=== PATIENT | male | born 1985 | race Caucasian/White ===

== ENCOUNTER 2016-10-31 17:35 | Emergency (ER) | payer SELFPAY ==
[~2016-10-31] VITALS: Ht 190.5 cm; Wt 125.0 kg
[~2016-10-31 17:35] MED LIST: /MOXI40TA OR; FOLI1TAB OR; MULTIVIT PO; PERC5TAB8 OR; ROBITUSSIN PO; THIA100T OR; no
[2016-10-31] MEDS ORDERED: FLUORESCEIN OPHTH 1 MG STRIP OU ONE (20:00)
[2016-10-31] MEDS ORDERED: TETRACAINE 0.5% OPHTH SOLN 4ML OU ONE (20:00)
[2016-10-31] MEDS ORDERED: ERYTHROMYCIN OPHTH OINT OU ONE (20:15)
[2016-10-31] MEDS ORDERED: PATA0.2S OS (20:24)
[2016-10-31] MEDS ORDERED: ERYTOIN8 OU (20:24)
[2016-10-31 20:35] VITALS: BP 141/73
== END 2016-10-31 20:38 | disposition home or self-care (01) ==
LOC: M ED 17:35
DX: H10.33 Unspecified acute conjunctivitis, bilateral (principal)

== ENCOUNTER → 2020-12-20 | Outpatient (CLI) | payer SELFPAY ==
[~2020-12-20] MED LIST changes: -/MOXI40TA OR; +AVEL1TAB2 OR; +ERYTOIN8 OU; +OLOP2.5D3 OS
== END ==
LOC: M OUTALCOH 09:52
PROVIDERS: ATTEND Psychiatry & Neurology Psychiatry
DX: F10.10 Alcohol abuse, uncomplicated (principal)

== ENCOUNTER 2020-12-31 15:55 | Outpatient (RCR) | payer SELFPAY | END 2021-01-02 | LOC: M OUTALCOH 15:55 | PROVIDERS: ATTEND Psychiatry & Neurology Psychiatry | DX: F10.10 Alcohol abuse, uncomplicated (principal); Z72.0 Tobacco use ==

== ENCOUNTER 2021-01-20 09:00 | Outpatient (RCR) | payer SELFPAY | END 2021-02-01 | LOC: M OUTALCOH 09:00 | PROVIDERS: ATTEND Psychiatry & Neurology Psychiatry | DX: F10.10 Alcohol abuse, uncomplicated (principal); Z72.0 Tobacco use ==

== ENCOUNTER 2021-02-10 08:00 | Outpatient (RCR) | payer SELFPAY | END 2021-03-04 | LOC: M OUTALCOH 08:00 | PROVIDERS: ATTEND Psychiatry & Neurology Psychiatry | DX: F10.10 Alcohol abuse, uncomplicated (principal); Z72.0 Tobacco use ==

== ENCOUNTER 2021-04-01 14:00 | Outpatient (RCR) | payer SELFPAY | END 2021-04-04 | LOC: M OUTALCOH 14:00 | PROVIDERS: ATTEND Psychiatry & Neurology Psychiatry | DX: F10.10 Alcohol abuse, uncomplicated (principal); Z72.0 Tobacco use ==

== ENCOUNTER 2021-04-29 13:52 | Outpatient (RCR) | payer SELFPAY | END 2021-05-02 | LOC: M OUTALCOH 13:52 | PROVIDERS: ATTEND Psychiatry & Neurology Psychiatry | DX: F10.10 Alcohol abuse, uncomplicated (principal); Z72.0 Tobacco use ==

== ENCOUNTER → 2021-06-02 | Outpatient (RCR) | payer SELFPAY | LOC: M OUTALCOH 05-05 08:51 | PROVIDERS: ATTEND Psychiatry & Neurology Psychiatry | DX: F10.10 Alcohol abuse, uncomplicated (principal); Z72.0 Tobacco use ==

== ENCOUNTER 2021-07-01 08:40 | Outpatient (RCR) | payer SELFPAY | END 2021-07-02 | LOC: M OUTALCOH 08:40 | PROVIDERS: ATTEND Psychiatry & Neurology Psychiatry | DX: F10.10 Alcohol abuse, uncomplicated (principal); Z72.0 Tobacco use ==

== ENCOUNTER 2021-07-06 12:47 | Outpatient (RCR) | payer SELFPAY | END 2021-08-02 | LOC: M OUTALCOH 12:47 | PROVIDERS: ATTEND Psychiatry & Neurology Psychiatry | DX: F10.10 Alcohol abuse, uncomplicated (principal); Z72.0 Tobacco use; F11.20 Opioid dependence, uncomplicated ==

== ENCOUNTER 2021-07-29 08:40 | Outpatient (RCR) | payer SELFPAY | END 2021-08-02 | LOC: M OUTALCOH 08:40 | PROVIDERS: ATTEND Psychiatry & Neurology Psychiatry | DX: F10.10 Alcohol abuse, uncomplicated (principal); Z72.0 Tobacco use; F11.20 Opioid dependence, uncomplicated ==

== ENCOUNTER → 2021-09-01 | Outpatient (RCR) | payer SELFPAY | LOC: M OUTALCOH 08-03 14:54 | PROVIDERS: ATTEND Psychiatry & Neurology Psychiatry | DX: F10.10 Alcohol abuse, uncomplicated (principal); Z72.0 Tobacco use; F11.20 Opioid dependence, uncomplicated ==

== ENCOUNTER 2021-09-26 14:00 | Outpatient (RCR) | payer SELFPAY | END 2021-10-02 | LOC: M OUTALCOH 14:00 | PROVIDERS: ATTEND Psychiatry & Neurology Psychiatry | DX: F10.10 Alcohol abuse, uncomplicated (principal); F11.20 Opioid dependence, uncomplicated; Z72.0 Tobacco use ==

== ENCOUNTER 2021-10-03 07:58 | Emergency (ER) | payer SELFPAY ==
[~2021-10-03] VITALS: Ht 188 cm; Wt 128.2 kg
[2021-10-03] MEDS ORDERED: CHARCOAL ACTIVATED LIQUID 25 GM/120 ML BTL PO ONE (08:15)
[2021-10-03] MEDS ORDERED: NS 1,000 ML IV SCH (08:15)
[2021-10-03 08:34] LABS: HEMATOCRIT 41.5 % (42.0-52.0); HEMOGLOBIN 13.8 g/dl (13.5-17.5); MEAN CORPUSCULAR HEMOGLOBIN 28.9 pg (27.0-33.0); MEAN CORPUSCULAR HGB CONC 33.3 g/dl (32.0-36.5); MEAN CORPUSCULAR VOLUME 86.8 fl (80.0-96.0); PLATELET COUNT, AUTOMATED 183 10^3/uL (150-450); RED BLOOD COUNT 4.78 10^6/uL (4.30-6.10); WHITE BLOOD COUNT 10.2 10^3/uL (4.0-10.0)
[2021-10-03] MEDS ORDERED: MULTIVITAMINS/MINERALS THERAP 1 TAB PO SCH (09:00)
[2021-10-03] MEDS ORDERED: THIAMINE 100 MG TAB PO SCH (09:00)
[2021-10-03] MEDS ORDERED: FOLIC ACID 1 MG TAB PO SCH (09:00)
[2021-10-03 09:10] LABS: ACETAMINOPHEN LEVEL < 2.0 UG/ML (10.0-30.0); ALBUMIN 3.9 GM/DL (3.2-5.2); ALT/SGPT 30 U/L (12-78); BILIRUBIN,DIRECT 0.2 MG/DL (0.0-0.2); BILIRUBIN,TOTAL 0.4 MG/DL (0.2-1.0); BLOOD UREA NITROGEN 18 MG/DL (7-18); CALCIUM LEVEL 9.3 MG/DL (8.5-10.1); CARBON DIOXIDE LEVEL 25 MEQ/L (21-32); CHLORIDE LEVEL 109 MEQ/L (98-107); ETHYL ALCOHOL (ETHANOL) < 0.003 % (0.000-0.010); GLOMERULAR FILTRATION RATE > 60.0 (>60); GLUCOSE, FASTING 117 MG/DL (70-100); POTASSIUM SERUM 3.5 MEQ/L (3.5-5.1); SALICYLATE LEVEL < 1.7 MG/DL (5.0-30.0); SODIUM LEVEL 142 MEQ/L (136-145); TOTAL PROTEIN 6.9 GM/DL (6.4-8.2)
[2021-10-03 09:14] LABS: RSV AMPLIFICATION NEGATIVE (NEGATIVE)
[2021-10-03 12:05] LABS: AMPHETAMINES LEVEL URINE NEGATIVE (NEGATIVE); BARBITURATES URINE NEGATIVE (NEGATIVE); BENZODIAZEPINES URINE NEGATIVE (NEGATIVE); CANNABINOIDS URINE NEGATIVE (NEGATIVE); COCAINE METABOLITE URINE NEGATIVE (NEGATIVE); METHADONE URINE NEGATIVE (NEGATIVE); OPIATES URINE POSITIVE (NEGATIVE); PHENCYCLIDINE URINE NEGATIVE (NEGATIVE)
[2021-10-03 13:25] VITALS: BP 154/80
== END 2021-10-03 13:29 | disposition home or self-care (01) ==
LOC: EDBD 07:58 → M ED 07:58
DX: T40.2X1A Poisoning by other opioids, accidental (unintentional), initial encounter (principal)

== ENCOUNTER 2021-10-05 09:31 | Outpatient (RCR) | payer SELFPAY | END 2021-11-02 | LOC: M OUTALCOH 09:31 | PROVIDERS: ATTEND Psychiatry & Neurology Psychiatry | DX: F10.10 Alcohol abuse, uncomplicated (principal); Z72.0 Tobacco use; F11.20 Opioid dependence, uncomplicated ==

== ENCOUNTER 2023-09-06 08:00 | Emergency (ER) | payer OTHER, SELFPAY ==
[~2023-09-06] VITALS: Ht 190.5 cm; Wt 143.2 kg
[2023-09-06 08:21] VITALS: TEMP 96.5
[2023-09-06 08:36] LABS: BASO % 0.4 % (0.0-1.0); EOS # 0.2 10^3/uL (0.0-0.5); EOS % 2.1 % (0.0-3.0); HEMATOCRIT 42.1 % (42.0-52.0); HEMOGLOBIN 14.1 g/dl (13.5-17.5); LYMPH # 1.8 10^3/uL (1.5-5.0); LYMPH % 19.9 % (24.0-44.0); MEAN CORPUSCULAR HEMOGLOBIN 28.4 pg (27.0-33.0); MEAN CORPUSCULAR HGB CONC 33.5 g/dl (32.0-36.5); MEAN CORPUSCULAR VOLUME 84.9 fl (80.0-96.0); MONO # 0.7 10^3/uL (0.0-0.8); MONO % 7.6 % (2.0-8.0); NEUTROPHILS # 6.2 10^3/uL (1.5-8.5); NEUTROPHILS % 69.8 % (36.0-66.0); PLATELET COUNT, AUTOMATED 193 10^3/uL (150-450); RED BLOOD COUNT 4.96 10^6/uL (4.30-6.10); WHITE BLOOD COUNT 8.9 10^3/uL (4.0-10.0)
[2023-09-06] MEDS: PANTOPRAZOLE 40MG VIAL IV ONE (08:45)
[2023-09-06] MEDS: MAALOX 30 ML SUSP *UDC PO ONE (08:45)
[2023-09-06 08:53] LABS: INR 1.01
[2023-09-06 09:06] LABS: LIPASE 23 U/L (12-53)
[2023-09-06 09:08] LABS: ALBUMIN 4.1 G/DL (3.2-5.2); ALKALINE PHOSPHATASE 74 U/L (46-116); ALT/SGPT 43 U/L (7.0-40); AST/SGOT 20 U/L (<34); BILIRUBIN,DIRECT 0.2 MG/DL (<0.4); BILIRUBIN,TOTAL 0.5 MG/DL (0.3-1.2); BLOOD UREA NITROGEN 14 MG/DL (9-23); CALCIUM LEVEL 9.1 MG/DL (8.5-10.1); CARBON DIOXIDE LEVEL 26 MMOL/L (20-31); CHLORIDE LEVEL 102 MMOL/L (98-107); CK-MB VALUE MASS 4.2 NG/ML (<3.6); CPK CREATINE PHOSPHOKINASE 164 U/L (46-171); CREATININE FOR GFR 0.86 MG/DL (0.70-1.30); GLOMERULAR FILTRATION RATE > 60.0 (>60); GLUCOSE, FASTING 123 MG/DL (60-100); MB/CK RELATIVE INDEX 2.56 (< OR =4); POTASSIUM SERUM 3.4 MMOL/L (3.5-5.1); SODIUM LEVEL 136 MMOL/L (136-145); TOTAL PROTEIN 7.1 G/DL (5.7-8.2)
[2023-09-06 09:10] LABS: FREE T4 1.26 NG/DL (0.89-1.76); THYROID STIMULATING HORMONE 3.752 uIU/ML (0.55-4.78)
[2023-09-06] MEDS ORDERED: NITROGLYCERIN 0.4MG SUBL TABLET SL PRN (09:10)
[2023-09-06] MEDS ORDERED: ISOVUE-370 76% 100ML VIAL As Ordered ONE (09:18)
[2023-09-06] MEDS: POTASSIUM CHLORIDE 10MEQ SR TABLET PO ONE (09:32)
[2023-09-06 10:20] LABS: CK-MB VALUE MASS 3.4 NG/ML (<3.6); MB/CK RELATIVE INDEX 2.48 (< OR =4)
[2023-09-06 10:46] VITALS: BP 147/75
[2023-09-06] MEDS ORDERED: PANT40TA29 PO (10:58)
[2023-09-06 11:01] VITALS: O2SAT 98
== END 2023-09-06 11:04 | disposition home or self-care (01) ==
LOC: M ED 08:00
DX: R07.9 Chest pain, unspecified (principal); R00.0 Tachycardia, unspecified; Z79.899 Other long term (current) drug therapy
CPT/HCPCS: 71046; 71275; 80048; 80076; 82550; 82553; 83690; 83880; 84439; 84443; 84484; 85025; 85610; 85730; 93005; 93041; 94760; 96374; 99285; J2470; Q9967

== ENCOUNTER 2024-11-12 16:13 | Emergency (ER) | payer OTHER ==
[~2024-11-12] VITALS: Ht 190.5 cm; Wt 144.0 kg
[~2024-11-12 16:13] MED LIST changes: +PANT40TA29 PO
[2024-11-12] MEDS: LIDOCAINE 2% MDV 20 ML VIAL SC ONE (18:04)
[2024-11-12 18:57] VITALS: BP 155/83; TEMP 97.8; O2SAT 98
== END 2024-11-12 19:12 | disposition home or self-care (01) ==
LOC: M ED 16:13
DX: S71.112A Laceration without foreign body, left thigh, initial encounter (principal); Y92.9 Unspecified place or not applicable; Y93.9 Activity, unspecified; Y99.9 Unspecified external cause status; W26.0XXA Contact with knife, initial encounter; Z79.899 Other long term (current) drug therapy